=== PATIENT | male | born 1980 | race Caucasian/White ===

== ENCOUNTER 2017-04-15 14:03 | Emergency (ER) | payer SELFPAY ==
--- NOTE | 2017-04-15 14:21 | UC ---
Lower Extremity/Ankle HPI - HPI Summary HPI Summary: 36 y/o male presents to the urgent care c/o Rt ankle pain s/p tripping going down the stairs and twisting his Rt ankle last Saturday04/10/2017. Pt reports he went to [facility] and he had an X-ray and it was negative for Fracture. PT has been placing ice, elevating his leg, keeping ankle immobilized w/ gel splint, using crutches and taking Tylenol PO to alleviate symptoms. However, he thinks he has a fracture since pain has worsen and now is going up his Rt calf and swelling has increased. Pain is 6/10 sharp, He is unable to bear weight. Pt states he doesn't have a copy of disc of Rt knee x-ray. He is trying to get insurance which he thinks he can get it effective tomorrow.Pt denies fever, SOB, chest pain abdominal pain, N/V/D, numbness or tingling over Rt foot. - History of Current Complaint Hx Obtained From: Patient Onset/Duration: Sudden Onset, Lasting Days - 6 days, Still Present, Worse Since - yesterday Severity Initially: Moderate Severity Currently: Moderate Pain Intensity: 6 Pain Scale Used: 0-10 Numeric Aggravating Factor(s): Standing, Ambulation Alleviating Factor(s): Rest, Ice, OTC Meds - tylenol Able to Bear Weight: No - Risk Factors Gout Risk Factors: Negative DVT Risk Factors: Negative Septic Arthritis Risk Factor: Negative <Jeannine Carney - Last Filed: 04/15/17 23:07> <Marcie Trevizo - Last Filed: 04/17/17 07:23> - History of Current Complaint Chief Complaint: UCLowerExtremity Stated Complaint: ANKLE INJURY Time Seen by Provider: 04/15/17 14:19 - Allergies/Home Medications Allergies/Adverse Reactions: Allergies Allergy/AdvReac Type Severity Reaction Status Date / Time cefuroxime Allergy Unknown Verified 04/15/17 14:15 Reaction Details Latex, Natural Rubber Allergy See Comment Verified 04/15/17 15:05 Home Medications: Home Medications Acetaminophen [APAP] 325 mg PO Q6H PRN 04/15/17 [History Confirmed 04/15/17] PMH/Surg Hx/FS Hx/Imm Hx Previously Healthy: Yes - Pt denies PMHX - Surgical History Surgical History: Yes Surgery Procedure, Year, and Place: wisdom teeth - Family History Known Family History: Positive: None - Pt denies FMHX - Social History Occupation: Employed Full-time Lives: With Family Alcohol Use: None Substance Use Type: None Smoking Status (MU): Light Every Day Tobacco Smoker Amount Used/How Often: about once every few weeks Have You Smoked in the Last Year: No <AlexisJeannine Alcazar - Last Filed: 04/15/17 23:07> Review of Systems Constitutional: Negative Skin: Negative Eyes: Negative ENT: Negative Respiratory: Negative Cardiovascular: Negative Gastrointestinal: Negative Genitourinary: Negative Motor: Negative Musculoskeletal: Decreased ROM - RT ankle s/p injury, Other: - RT ankle pain s/ p fall Neurological: Negative Psychological: Negative Is Patient Immunocompromised?: No All Other Systems Reviewed And Are Negative: Yes <Jeannine Carney - Last Filed: 04/15/17 23:07> Physical Exam Triage Information Reviewed: Yes Vital Signs: Initial Vital Signs Temp 97.1 F 04/15/17 14:06 Pulse 79 04/15/17 14:06 Resp 16 04/15/17 14:06 BP 145/102 04/15/17 14:06 Pulse Ox 98 04/15/17 14:06 - Additional Comments Vital Signs Reviewed: Yes General: well developed, well nourished male, sitting in the examining table w/ o any apparent distress Eyes: Positive: Conjunctiva Clear - PERRLA, EOMI, ENT: Positive: Normal ENT inspection, Hearing grossly normal, Pharynx normal, TMs normal Neck: Positive: Supple, Nontender, No Lymphadenopathy Respiratory: Positive: Chest non-tender, Lungs clear, Normal breath sounds, No respiratory distress Cardiovascular: Positive: RRR, No Murmur, Pulses Normal, Brisk Capillary Refill Abdomen Description: Positive: Nontender, No Organomegaly, Soft. Negative: CVA Tenderness (R), CVA Tenderness (L) Bowel Sounds: Positive: Present Musculoskeletal: - RT Ankle: Pt is unable able to bear weight.. The R ankle is w / lateral deformity when compared to the L ankle may be due to swelling . Decreased ROM due to pain. Moderate swelling at the lateral and medial malleolus , with tenderness to palpation of both. There is a healing abrasion over the dorsal side of foot near medial malleolus. Talar tilt test, drawer test unable ot perform due to pain.. Positive sensation over the Rt foot and Rt ankle, positive pulses, capillary refill intact. roland test: positive w/ moderate swelling over the achilles tendon insertion. Neurological Exam: Normal Psychological Exam: Normal Skin: warm and dry <Jeannine Carney - Last Filed: 04/15/17 23:07> Vital Signs: Initial Vital Signs Temp 97.1 F 04/15/17 14:06 Pulse 79 04/15/17 14:06 Resp 16 04/15/17 14:06 BP 145/102 04/15/17 14:06 Pulse Ox 98 04/15/17 14:06 <Marcie Trevizo - Last Filed: 04/17/17 07:23> Lower Extremity Course/Dx - Course Course Of Treatment: 36 y/o male presents to the urgent care c/o Rt ankle pain s /p tripping going down the stairs and twisting his Rt ankle last Saturday. Pt reports he went to [facility] and he had an X-ray and it was negative for Fracture. PT has been placing ice, elevating his leg, keeping ankle immobilized w/ gel splint, using crutches and taking Tylenol PO to alleviate symptoms. However, he thinks he has a fracture since pain has worsen and now is going up his Rt calf and swelling has increased. Pain is 6/10 sharp, He is unable to bear weight. Pt states he doesn't have a copy of disc of Rt knee x-ray. He is trying to get insurance which he thinks he can get it effective tomorrow.Pt denies fever, SOB, chest pain abdominal pain, N/V/D, numbness or tingling over Rt foot.Hx obtained. RT ankle w/ moderate swelling and tenderdess over both malleoulus. Roland test positive on examination. Rt ankle X-ray ordered, Impression: Soft tissue swelling, no acute fracture. Pt's symptoms counsulted w/ Dr Trevizo. She evaluated Pt and recommended RT ankle X- ray to r/o Frature, pain medication, posterior back splint and f/u w/ Orthopedic. Pt given Ibuprofen and [place] PO at the clinic for pain. Pt tolerated well medication and Pain decrease. RT ankle X-ray ordred. Impression: well corticated bone fragment off medial mallelolus suggestive of a remote avulsion injury. Pt immobilized with a posterior back splint. There was no neurovascular compromise after splint application; the splint was in good alignment and the pt had good sensation and capillary refill at the time of discharge.Advised to continue w/ crutches to avoid weight bearing, Rx Ibuprofen PO, [place] PO to decrease swelling and pain. Pt advised RICE, and to f/u with orthopedic Dr Collier in 2-3 days for further treatment to r/o any achilles tendon tear or rupture. Pt's BP is elevated today advised to decrease salt in diet, monitor BP and f/u with PCP for further management. Pt understood and agreed and left the clinic ambulating w/ the help of crutches. - Differential Dx/Diagnosis Differential Diagnosis/HQI/PQRI: Contusion, Fracture (Closed), Fracture (Open), Sprain, Strain, Tendonitis Provider Diagnoses: 1- RT ankle pain s/p fall. 2- RT malleolus w/ remote avulsion injury. 3-elevated BP w/o Hx of HTN - Physician Notifications Discussed Patient Care With: Marcie Trevizo - Dr Trevizo agreed w/ Pt's plan of care. <Jeannine aCrney - Last Filed: 04/15/17 23:07> Discharge <Jeannine Carney - Last Filed: 04/15/17 23:07> <Marcie Trevizo - Last Filed: 04/17/17 07:23> - Discharge Plan Condition: Stable Disposition: HOME Prescriptions: HYDROcodone/ACETAMIN 5-325 MG* [[place] 5-325 TAB*] 1 tab PO Q6H PRN #12 tab MDD 1g/4hrs and 4/day PRN Reason: Pain Ibuprofen TAB* [Motrin TAB* 800 MG] 800 mg PO Q6H PRN #30 tab PRN Reason: Pain Patient Education Materials: Ankle Fracture (ED), Low-Sodium Diet (ED) Forms: *Work Release Referrals: Mayo Collier MD [Medical Doctor] - 2 Days (Pt w/ possible remote avulsion at the RT medial malleolus. also w/ possible achilles tendone rupture. Please evaluate. Thank you) Additional Instructions: 1-Please take medications as directed to alleviate pain and swelling. 2-Please apply ice, keep your ankle immobilized with the splint. Avoid weight bearing using the crutches 3- Please f/u with Orthopedic Dr Collier in 2 days further evaluation and treatment. 4-Your BP is elevated today. please decrease salt in your diet, monitor BP and if it continues to be elevated please f/u with your PCP for further management Attestation Statement User Type: Provider - Pt evaluated by me as well Pt with mechanical trip and fall on step Last Sat Pt states heard and felt a "Snap". Pt reports ongoing significant pain with walking and movement of ankle. Pt had imaging at [facility] which was negative for acute fx. Pt did not follow-up with anyone. Pt states insurance becoming active today. Pt with ecchymosis and edema of right ankle, increaed medial malleolus. + diffusely tender to palp along joing, anterior tallus, medial malleoulus and achilles pt with pain with any movement of ankle - pt states pain along achilles No palpable defect but pt sensitive to attempt at exam. No pain along mid to prox calf + flex/ext knee. + great to extension with discomfort. Pt refused attempt for inversion/eversion movement. Will check imaging recommend posterior sling, pt continue to use crutches, ortho referral ice elevate analgesia narcotic precautions discussed pt and so comfortable and in agreement with plan <Marcie Trevizo - Last Filed: 04/17/17 07:23>
[2017-04-15] MEDS ORDERED: HYDROcodone/ACETAMIN 5-325 MG* 1 TAB PO ONE (14:54)
[2017-04-15] MEDS ORDERED: Ibuprofen TAB* 400 MG PO ONE (14:54)
--- NOTE | 2017-04-15 15:24 | RAD ---
HISTORY: Right ankle pain, status post injury COMPARISONS: None VIEWS: 3, Frontal, lateral, and oblique views of the right ankle FINDINGS: BONE DENSITY: Normal. BONES: There is a well-corticated bone fragment off the medial malleolus. There is no acute displaced fracture. 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 ALIGNMENT: There is no dislocation. SOFT TISSUES: There is circumferential soft tissue swelling. OTHER FINDINGS: None. IMPRESSION: 1. WELL-CORTICATED BONE FRAGMENT OFF THE MEDIAL MALLEOLUS SUGGESTIVE OF REMOTE AVULSION INJURY. 2. NO ACUTE DISPLACED FRACTURE. 3. SOFT TISSUE SWELLING. 4. OSTEOARTHRITIS OF THE TIBIOTALAR ARTICULATION
[2017-04-15 16:32] VITALS: BP 130/90
== END 2017-04-15 16:30 | disposition home or self-care (01) ==
LOC: UCEAST 14:03
DX: M25.571 Pain in right ankle and joints of right foot (principal); S82.891A Other fracture of right lower leg, initial encounter for closed fracture; X50.1XXA Overexertion from prolonged static or awkward postures, initial encounter; Y93.89 Activity, other specified; Y92.9 Unspecified place or not applicable; R03.0 Elevated blood-pressure reading, without diagnosis of hypertension; Z88.1 Allergy status to other antibiotic agents; Z91.040 Latex allergy status; Z72.0 Tobacco use
CPT/HCPCS: 99212; A9270-GY; G0463